=== PATIENT | female | born 1995 | race Caucasian/White ===

== ENCOUNTER 2019-10-09 12:39 | Emergency (ER) | payer MEDICAID ==
[~2019-10-09] VITALS: Ht 162.6 cm; Wt 77.1 kg
[2019-10-09 13:05] VITALS: Ht 162.6 cm; Wt 77.1 kg
[2019-10-09 15:19] VITALS: BP 141/85
== END 2019-10-09 15:19 | disposition home or self-care (01) ==
LOC: ED 12:39
DX: S83.92XA Sprain of unspecified site of left knee, initial encounter (principal); W22.8XXA Striking against or struck by other objects, initial encounter; Y93.89 Activity, other specified; Y92.89 Other specified places as the place of occurrence of the external cause; Y99.8 Other external cause status
CPT/HCPCS: Q0092